=== PATIENT | male | born 1985 | race Caucasian/White ===

== ENCOUNTER 2019-05-15 11:47 | Emergency (ER) | payer OTHER ==
[~2019-05-15] VITALS: Ht 185.4 cm; Wt 81.7 kg
[2019-05-15] MEDS ORDERED: Keflex500 MG PO (13:06)
[2019-05-15] MEDS ORDERED: Bactrim Ds Tab1 EACH PO (13:09)
== END 2019-05-15 13:50 | disposition home or self-care (01) ==
LOC: ER 11:47
DX: L03.012 Cellulitis of left finger (principal)
CPT/HCPCS: 96365; 99283-25; J0696